=== PATIENT | male | born 1930 | race Caucasian/White ===

== ENCOUNTER 2017-07-21 14:59 | Inpatient (IN) ==
[2017-07-21] MEDS ORDERED: Acetaminophen 325 MG TABLET PO PRN (19:54)
[2017-07-21] MEDS ORDERED: Naloxone 0.4 MG/ML INJ IVP PRN (19:54)
[2017-07-21] MEDS ORDERED: Dextrose Gel 15 GM/37.5 ML TUBE PO PRN ×2 (20:03)
[2017-07-21] MEDS ORDERED: D5% in Water 1,000 ML IVC PRN (20:03)
[2017-07-21] MEDS ORDERED: *HR* Dextrose 50 % in Water (Syg) 50 ML SYRINGE IVP PRN (20:03)
--- NOTE | 2017-07-21 20:11 | Internal Med History&Physical ---
Date of Encounter: 07/21/17 Time of Encounter: 19:15 Assessment and Plan (1) Acute kidney failure Current visit: Yes Status: Acute 1. Will hydrate with IVF for post-obstructive diuresis. 2. Will ultrasound kidneys in the morning. 3. Consult Dr. Elder and Dr. Kan -- both notified. 4. Monitor renal function and I/O. Qualifiers: Acute renal failure type: unspecified Qualified Code(s): N17.9 - Acute kidney failure, unspecified (2) Hematuria Current visit: Yes Status: Acute 1. Likely due to post-obstructive diuresis. 2. Will order U/A C&S. 3. Monitor renal function and H/H closely. 4. Will treat with Rocephin for possible UTI. 5. Nephrology and Urology consulted. Qualifiers: Hematuria type: unspecified type Qualified Code(s): R31.9 - Hematuria, unspecified (3) Type 2 diabetes mellitus Current visit: Yes Status: Chronic 1. Hold oral meds. 2. Will use SSI and adjust dosing per glucose levels. Qualifiers: Diabetes mellitus complication status: without complication Diabetes mellitus technician terminal and repeater insulin use: without halfway use Qualified Code(s): E11.9 - Type 2 diabetes mellitus without complications (4) Anemia Current visit: Yes Status: Acute 1. Unsure how acute the anemia has been. 2. Will monitor H/H and transfuse as needed. 3. No history of reported blood loss other than hematuria this weekend. Qualifiers: Anemia type: unspecified type Qualified Code(s): D64.9 - Anemia, unspecified (5) DVT prophylaxis Current visit: Yes Status: Acute 1. EPCD's. Internal Medicine - H&P: HPI Chief complaint: hematuria; transfer from [facility] Admitted From: Hospital to Hospital Transfer Plans for Post Hospital Care: Home History of present illness: Mr. Dumont is a 86 year old male presents in transfer from [facility] for hematuria. He presented there this past weekend with inablity to void. He had a Mujica placed and was admitted to the hospital. He had 2000 cc urine output after Mujica placement. He had developed hematuria after his Mujica placement and hematuria has perisisted. He was therefore transferred because of lack of urology and nephrology coverage at [facility]. Upon my assessment, patient feel OK but weak. He developed incontinenece about two months ago and then inability to void this past Thursday. Prior to that, he has had no urination or kidney problems. He denies any dysuria, flank pain, nausea, vomiting, or difficulty moving bowels prior to his admission. He denies any prior prostate problems. Past Med Surg Social Fam HX - Past Medical History Attestation: Yes The following information was validated with the patient. Source: patient, old records reviewed, obtained from family, other (transfer records from [facility]) Medical history: diabetes, hyperlipidemia, hypertension Psychiatric history: no psych history - Past Surgical History Surgical History: appendectomy, cholecystectomy, knee replacement - Social History Smoking Status: Former smoker Alcohol use: none Drug use: none Occupational status: retired Current living situation: Home - Independent Activity Level: Independent ambulation, Very active Recent Out of Country Travel Within the Last 8 Weeks: No - Family History Mother Living Status: Father Living Status: Internal Medicine - H&P: Meds 3 Allergy/AdvReac Type Severity Reaction Status Date / Time codeine Allergy Hives Verified 07/21/17 18:42 morphine Allergy Rash Verified 07/21/17 18:42 - Constitutional Constitutional: no chills, no fever(s), no night sweats, no weight loss - EENT Eyes: no blurry vision, no change in vision Ears: no ear pain, no tinnitus Nose, mouth and throat: no nasal congestion, no nasal discharge - Cardiovascular Cardiovascular ROS IM: no chest pain, no dyspnea, no dyspnea on exertion, no orthopnea, no syncope - Respiratory Respiratory: no cough, no dyspnea, no hemoptysis, no dyspnea on exertion, no chest congestion, no excessive phlegm production, no change in phlegm color - Gastrointestinal Gastrointestinal: no abdominal pain, no diarrhea, no hematemesis, no hematochezia, no melena, no nausea, no vomiting - Genitourinary Genitourinary ROS male: hematuria, urinary hesitancy, urinary incontinence, no dysuria, no flank pain, no nocturia - Musculoskeletal Musculoskeletal ROS IM: no arthralgias, no atrophy - Integumentary Integumentary IM: no rash, no jaundice - Neurological Neurological ROS: no dizziness, no focal weakness, no frequent falls, no tingling, no vertigo, no weakness - Psychiatric Psychiatric: no anxiety, no depression - Endocrine Endocrine IM: no polydipsia, no polyuria - Hematologic/Lymphatic Hematologic/Lymphatic: no easy bruising, no lymphadenopathy - Allergic/Immunologic Allergic/Immunologic: no wheezing, no GI upset with certain foods - Constitutional Vitals: Temp Pulse Resp BP Pulse Ox 98.1 F 71 16 147/56 96 07/21/17 18:18 07/21/17 18:18 07/21/17 18:18 07/21/17 18:18 07/21/17 18:18 General appearance: Present: cooperative, A&O X 3, pleasant, no acute distress, answers questions appropriately - Head Head exam: Present: normal inspection - Eye Eye exam: Present: EOMI, normal appearance, PERRL. Absent: scleral icterus Pupils: Present: normal accommodation - ENT ENT exam: Present: mucous membranes dry, normal exam, normal oropharynx - Neck Neck exam general surgery: Present: full ROM, supple. Absent: tenderness, nuchal rigidity - Expanded Neck Exam Neck exam: Absent: carotid bruit - Respiratory Respiratory exam: Present: CTAB. Absent: chest wall tenderness, rales, rhonchi , wheezes - Cardiovascular Cardiovascular exam: Present: RRR, +S1, +S2. Absent: diastolic murmur, systolic murmur - GI/Abdominal GI/Abdominal exam: Present: normal bowel sounds, soft. Absent: guarding, hepatomegaly, mass, rebound, splenomegaly, tenderness - Extremities Exam Extremities exam: Present: normal capillary refill, warm, radial pulses palpable and symmetrical. Absent: calf tenderness, joint swelling, tenderness - Back Exam Back exam: Present: normal inspection. Absent: CVA tenderness (L), CVA tenderness (R) - Neurological Exam Neurological exam: Present: alert, CN II-XII intact, oriented X3, no focal deficits, strengths equal and symetr throughout - Psychiatric Psychiatric exam: Present: normal affect, normal mood - Skin Skin exam: Present: dry, warm. Absent: rash Internal Med - H&P Results - Labs Labs: I reviewed labs from [facility] and they include the following: WBC 6.4 Hgb 7.5 Hct 22.5 Platelet 195 Na 145 Potassium 3.8 Chloride 113 CO2 24 BUN 28 Glucose 56 Creatinine 1.98 Renal Ultrasound: Cysts in the kidneys Mild bilateral hydronephrosis
[2017-07-21 20:43] LABS: Basophils % 0.4 %; Eosinophils # 0.3 K/mcL (0.0-0.6); Eosinophils % 3.6 %; Hematocrit 27.2 % (37.5-50.1); Hemoglobin 8.9 g/dL (12.9-16.9); Immature Granulocytes % 0.9 % (0-4); Lymphocytes # 1.9 K/mcL (0.6-4.6); Lymphocytes % 24.1 %; Mean Corpuscular HGB Conc 32.7 g/dL (31.6-35.5); Mean Corpuscular Hemoglobin 31.4 pg (28.0-33.3); Mean Corpuscular Volume 96.1 fL (83.0-100.0); Mean Platelet Volume 10.9 fL (9.4-12.4); Monocytes # 0.8 K/mcL (0.0-1.3); Monocytes % 10.4 %; Neutrophils # 4.7 K/mcL (1.6-8.9); Platelet Count 222 K/mcL (140-400); Red Blood Count 2.83 M/mcL (4.19-5.50); Red Cell Distribution Width 12.1 % (11.5-14.5); Segmented Neutrophils % 60.6 %
[2017-07-21 20:49] LABS: INR 1.1; Prothrombin Time 11.8 Seconds (9.4-12.1)
[2017-07-21 20:51] LABS: Activated Partial Thrombo Time 26.2 Seconds (26.0-36.0)
[2017-07-21 21:16] LABS: Albumin 3.1 g/dL (3.5-5.7); Bilirubin,Total 0.3 mg/dL (0.3-1.0); Calcium 8.3 mg/dL (8.6-10.3); Magnesium 1.2 mg/dL (1.6-2.6); Potassium 3.6 mEq/L (3.5-5.1); Total Protein 6.1 g/dL (6.4-8.9)
[2017-07-21] MEDS: 0.9 % Sodium Chloride 1,000 ML IVC SCH (21:39)
[2017-07-21] MEDS: cefTRIAXone 1,000 MG in Water for inj. (sterile) 20 ML 10 ML IVP SCH (21:39)
[2017-07-22 01:39] LABS: Bilirubin,Urine Negative (Negative); Blood,Urine Large (Negative); Clarity,Urine Cloudy (Clear); Color,Urine Other (Yellow); Glucose,Urine (UA) 100 mg/dL (Normal); Ketones,Urine Negative (Negative); Leukocyte Esterase,Urine Trace (Negative); Nitrite,Urine Negative (Negative); Protein,Urine 100 mg/dL (Neg-Trace); Specific Gravity,Urine 1.014 (1.010-1.025); Urobilinogen,Urine Normal (Normal)
[2017-07-22 01:41] LABS: Bacteria,Urine None Seen per hpf (None-Few); Hyaline Casts,Urine None Seen per lpf (None-Few); RBC,Urine TNTC per hpf (0-3); Squamous Epithelial Cell,Urine Many per lpf (None-Few)
[2017-07-22 05:53] LABS: Basophils % 0.4 %; Eosinophils # 0.3 K/mcL (0.0-0.6); Eosinophils % 3.6 %; Hemoglobin 8.6 g/dL (12.9-16.9); Lymphocytes # 1.7 K/mcL (0.6-4.6); Mean Corpuscular HGB Conc 33.1 g/dL (31.6-35.5); Mean Corpuscular Hemoglobin 31.6 pg (28.0-33.3); Mean Corpuscular Volume 95.6 fL (83.0-100.0); Mean Platelet Volume 10.6 fL (9.4-12.4); Monocytes # 0.8 K/mcL (0.0-1.3); Monocytes % 11.8 %; Neutrophils # 4.1 K/mcL (1.6-8.9); Nucleated Red Blood Cells 0.4 /100 WBC (0); Platelet Count 222 K/mcL (140-400); Red Blood Count 2.72 M/mcL (4.19-5.50); Red Cell Distribution Width 12.1 % (11.5-14.5); Segmented Neutrophils % 59.2 %
[2017-07-22 06:16] LABS: Albumin/Globulin Ratio 1.1 (1.1-2.2); Bilirubin,Total 0.3 mg/dL (0.3-1.0); Globulin 2.8 g/dL (2.4-3.5); Potassium 3.5 mEq/L (3.5-5.1); Total Protein 5.8 g/dL (6.4-8.9)
--- NOTE | 2017-07-22 07:51 | Nephrology Consult Note ---
Date of Encounter: 07/22/17 Time of Encounter: 07:49 Assessment and Plan (1) Acute kidney failure Current Visit: Yes Status: Acute The patient has a component of acute kidney injury. This seemed to improve with IV hydration raising the possibility of some postobstructive diuresis and possible volume depletion. His renal ultrasound is unremarkable except for changes in the bladder. It is unclear what his baseline renal function is. He certainly could have some underlying chronic kidney disease. We will continue to monitor his renal function. I would continue the IV fluids for at least another 24 hours. Urology has been consulted. We will attempt to get some outpatient lab studies to determine the patient's baseline renal function. Qualifiers: Acute renal failure type: unspecified Qualified Code(s): N17.9 - Acute kidney failure, unspecified (2) Bladder outlet obstruction Current Visit: Yes Status: Acute (3) Hematuria Current Visit: Yes Status: Acute Qualifiers: Hematuria type: gross Qualified Code(s): R31.0 - Gross hematuria History of Present Illness - History of Present Illness This is an [age]-year-old male who was admitted because of hematuria. Patient is somewhat of a unreliable historian. A lot of the history is taken from the medical record. Apparently the patient had difficulty emptying his bladder. He says this may have been several weeks ago. He presented to [facility] and eventually had a Mujica catheter placed. He said they had quite a bit of difficulty placing a Mujica catheter in he had a lot of pain during insertion. The patient's serum creatinine was 1.78 on admission. He received IV fluids overnight his creatinine is down to 1.53. Baseline creatinine is uncertain. Renal ultrasound was unremarkable and did not show any hydronephrosis. Mujica catheter is in place. There is gross hematuria in the bag. Currently the patient has no specific complaints. He says he did not realize he was having difficulty emptying his bladder until he was told to emptying on. Apparently that is when the Mujica catheter was placed at [facility]. He says he does not go to the doctor much and that the best of his knowledge does not have a primary care physician. Past Med Surg Social Fam HX - Past Medical History Medical history: diabetes, hyperlipidemia, hypertension Psychiatric history: no psych history - Past Surgical History Surgical History: appendectomy, cholecystectomy, knee replacement - Social History Smoking Status: Former smoker Alcohol use: none Drug use: none - Family History Mother Living Status: Father Living Status: Medications and Allergies Acebutolol HCl 400 mg PO DAILY 07/22/17 [History] Aspirin [Lo-Dose Aspirin EC] 81 mg PO DAILY 07/22/17 [History] Atorvastatin [Lipitor] 10 mg PO HS 07/22/17 [History] Glimepiride [Amaryl] 4 mg PO DAILY 07/22/17 [History] Insulin NPH Human Isophane [Humulin N Kwikpen] 15 unit SQ QPM 07/22/17 [History] Insulin NPH Human Isophane [Humulin N Kwikpen] 30 unit SQ QAM 07/22/17 [History] amLODIPine [Norvasc] 5 mg PO DAILY 07/22/17 [History] 3 Allergy/AdvReac Type Severity Reaction Status Date / Time codeine Allergy Hives Verified 07/21/17 18:42 morphine Allergy Rash Verified 07/21/17 18:42 Review of Systems Constitutional: as per HPI Eyes: bilateral: blurred vision (patient denies), diplopia (patient denies) Nose, mouth and throat: no dizziness, no headache(s) Cardiovascular: no chest pain, no palpitations Respiratory: no cough, no dyspnea Gastrointestinal: no abdominal pain, no change in bowel habits Genitourinary Male: as per HPI, difficulty urinating, hematuria Musculoskeletal: no muscle weakness, no numbness Integumentary: no hirsutism, no striae Neurological: as per HPI Psychiatric: no depression, no difficulty concentrating Endocrine: as per HPI Hematologic/Lymphatic: no easy bruising, no lymphadenopathy Exam - Vital Signs Vital signs: Initial Vital Signs Temp Pulse Resp BP Pulse Ox 98.1 F 71 16 147/56 96 07/21/17 18:18 07/21/17 18:18 07/21/17 18:18 07/21/17 18:18 07/21/17 18:18 Vital Signs - Last 8 Hours Temp Pulse Resp BP Pulse Ox 07/22/17 06:45 98.2 F 60 18 140/57 95 07/22/17 04:34 97.7 F 66 20 162/57 97 07/22/17 00:30 98.2 F 67 18 144/60 96 Intake and Output 03/06/18 03/06/18 03/07/18 15:59 23:59 07:59 Output Total 1500 / 1500 1100 / 1100 Balance -1500 / -1500 -1100 / -1100 Output: Urine 1500 / 1500 Catheter 1100 / 1100 Other: Weight 77.7 kg 79 kg Blood Glucose* 260 178 Patient Weight 07/22/17 23:59 Weight 79 kg - General Appearance Exam: The patient is alert. He denies any complaints. He is in no acute distress. He is afebrile and blood pressure is 140/57. Lungs diminished breath sounds otherwise clear to auscultation. Heart regular rate and rhythm. Abdomen shows normal bowel sounds of bruits masses again megaly or tenderness. There is no lower extremity swelling. A Mujica catheter is in place draining grossly bloody urine. Results - Lab Results 07/22/17 05:36 07/22/17 05:36 Most recent lab results Calcium 8.0 mg/dL (8.6-10.3) L 07/22/17 05:36 Magnesium 1.2 mg/dL (1.6-2.6) L 07/21/17 20:21 Consult Discharge Plan - Plan Referrals: Vinnie Carrera [Other]
--- NOTE | 2017-07-22 08:10 | Urology - Consult Note ---
Date of Encounter: 07/22/17 Time of Encounter: 08:07 - Assessment and Plan (1) Bladder outlet obstruction Current Visit: Yes Status: Acute Assessment and plan: 86-year-old gentleman with a history of urinary retention. Currently, he has a 12-Irish Mujica catheter in place. He does have some mild hematuria. His follow-up ultrasound shows no evidence of hydronephrosis. Renal function is improving. I recommend continue this catheter or changing it for a larger bore catheter such as a 16 or 18-Irish Mujica catheter if it does not drain well. We can attempt a voiding trial in the urology office in 1-2 weeks. Please consider alpha blockade such as tamsulosin to improve his bladder outlet obstruction in the short-term. (2) Hematuria Current Visit: Yes Status: Acute Assessment and plan: His urine is mildly bloody. In the tubing, it has a light pink tinge. Typically, this will resolve on its own. Continue to hold anticoagulants at this time. We may need to change out his catheter for a larger bore Mujica to irrigate the catheter if necessary. Operative intervention is unlikely at this time given the color of the urine. Continue to monitor his H&H. Transfuse if he becomes symptomatic. Qualifiers: Hematuria type: gross Qualified Code(s): R31.0 - Gross hematuria Urology CN:HPI Consult date: 07/22/17 Reason for consult Urology: Other (Urinary retention) Requesting physician: Ashu Tomlinson History of present illness: 86 year old man presents with urinary retention and hematuria. He was having difficulty voiding and noted incontinence at home. He went to the [facility] emergency Department and a Mujica catheter was placed. He then developed hematuria after his bladder was decompressed. There was no urologic or nephrology support at [facility] and he was transferred to our hospital for further care. Prior to going into retention, he denied any issues with voiding. He denies any lightheadedness or dizziness today. Past Med Surg Social Fam HX - Past Medical History Medical history: diabetes, hyperlipidemia, hypertension Psychiatric history: no psych history - Past Surgical History Surgical History: appendectomy, cholecystectomy, knee replacement - Social History Smoking Status: Former smoker Alcohol use: none Drug use: none - Family History Mother Living Status: Father Living Status: Medications and Allergies Acebutolol HCl 400 mg PO DAILY 07/22/17 [History] Aspirin [Lo-Dose Aspirin EC] 81 mg PO DAILY 07/22/17 [History] Atorvastatin [Lipitor] 10 mg PO HS 07/22/17 [History] Glimepiride [Amaryl] 4 mg PO DAILY 07/22/17 [History] Insulin NPH Human Isophane [Humulin N Kwikpen] 15 unit SQ QPM 07/22/17 [History] Insulin NPH Human Isophane [Humulin N Kwikpen] 30 unit SQ QAM 07/22/17 [History] amLODIPine [Norvasc] 5 mg PO DAILY 07/22/17 [History] 3 Allergy/AdvReac Type Severity Reaction Status Date / Time codeine Allergy Hives Verified 07/21/17 18:42 morphine Allergy Rash Verified 07/21/17 18:42 Review of Systems - Constitutional no chills, no fever(s) - EENT Nose, mouth and throat: no dizziness - Cardiovascular no chest pain - Respiratory no dyspnea - Gastrointestinal no nausea, no vomiting - Genitourinary hematuria, no flank pain - Musculoskeletal no back pain - Integumentary no erythema, no rash - Neurological no weakness - Psychiatric no suicidal ideation - Hematologic/Lymphatic no easy bleeding - Allergic/Immunologic no wheezing Exam Initial Vital Signs Temp Pulse Resp BP Pulse Ox 98.1 F 71 16 147/56 96 07/21/17 18:18 07/21/17 18:18 07/21/17 18:18 07/21/17 18:18 07/21/17 18:18 - General physical appearance Present: well developed, well nourished, no distress - Eyes Absent: icteric - ENT Present: normal nares - Neck Present: trachea midline - Respiratory Present: normal respiratory effort - Cardiovascular Cardiovascular exam IM: RRR - Abdomen Abdomen: Present: soft, non tender - Genitourinary other (12 Irish [address] catheter in place with light pink colored urine) - Integumentary Present: no rash - Neurologic Present: normal coordination - Musculoskeletal Present: other (No edema.) Urology Results - Labs 07/22/17 05:36 07/22/17 05:36 Abnormal lab results RBC 2.72 M/mcL (4.19-5.50) L 07/22/17 05:36 Hgb 8.6 g/dL (12.9-16.9) L 07/22/17 05:36 Hct 26.0 % (37.5-50.1) L 07/22/17 05:36 Nucleated RBCs/100 WBC 0.4 /100 WBC (0) H 07/22/17 05:36 BUN 32 mg/dL (8-23) H 07/22/17 05:36 Creatinine 1.53 mg/dL (0.70-1.30) H 07/22/17 05:36 Est GFR ( Amer) 52 (> 60) L 07/22/17 05:36 Est GFR (Non-Af Amer) 43 (> 60) L 07/22/17 05:36 Glucose 195 mg/dL (70-105) H 07/22/17 05:36 POC Glucose 260 (58-89) H 07/21/17 20:20 Calcium 8.0 mg/dL (8.6-10.3) L 07/22/17 05:36 Magnesium 1.2 mg/dL (1.6-2.6) L 07/21/17 20:21 Serum Total Protein 5.8 g/dL (6.4-8.9) L 07/22/17 05:36 Albumin 3.0 g/dL (3.5-5.7) L 07/22/17 05:36 Urine Color Other (Yellow) A 07/22/17 01:20 Urine Clarity Cloudy (Clear) A 07/22/17 01:20 Urine Protein 100 mg/dL (Neg-Trace) H 07/22/17 01:20 Urine Glucose (UA) 100 mg/dL (Normal) H 07/22/17 01:20 Urine Blood Large (Negative) H 07/22/17 01:20 Ur Leukocyte Esterase Trace (Negative) H 07/22/17 01:20 Urine Microscopic RBC TNTC per hpf (0-3) H 07/22/17 01:20 Urine Microscopic WBC 5-15 per hpf (0-3) H 07/22/17 01:20 Ur Squamous Epith Cells Many per lpf (None-Few) H 07/22/17 01:20 Diabetes panel 07/21/17 07/22/17 Range/Units 20:21 05:36 Sodium 135 L 137 (136-145) mEq/L Potassium 3.6 3.5 (3.5-5.1) mEq/L Chloride 108 H 107 (98-107) mEq/L Carbon Dioxide 21 L 23 (23-29) mEq/L BUN 36 H 32 H (8-23) mg/dL Creatinine 1.78 H 1.53 H (0.70-1.30) mg/dL Glucose 236 H 195 H (70-105) mg/dL Calcium 8.3 L 8.0 L (8.6-10.3) mg/dL AST 14 13 (13-39) Units/L ALT 9 9 (7-52) Units/L Alkaline Phosphatase 60 59 (34-104) Units/L Albumin 3.1 L 3.0 L (3.5-5.7) g/dL Calcium panel 07/21/17 07/22/17 Range/Units 20:21 05:36 Calcium 8.3 L 8.0 L (8.6-10.3) mg/dL Albumin 3.1 L 3.0 L (3.5-5.7) g/dL Pituitary panel 07/21/17 07/22/17 Range/Units 20:21 05:36 Sodium 135 L 137 (136-145) mEq/L Potassium 3.6 3.5 (3.5-5.1) mEq/L Chloride 108 H 107 (98-107) mEq/L Carbon Dioxide 21 L 23 (23-29) mEq/L BUN 36 H 32 H (8-23) mg/dL Creatinine 1.78 H 1.53 H (0.70-1.30) mg/dL Glucose 236 H 195 H (70-105) mg/dL Calcium 8.3 L 8.0 L (8.6-10.3) mg/dL Adrenal panel 07/21/17 07/22/17 Range/Units 20:21 05:36 Sodium 135 L 137 (136-145) mEq/L Potassium 3.6 3.5 (3.5-5.1) mEq/L Chloride 108 H 107 (98-107) mEq/L Carbon Dioxide 21 L 23 (23-29) mEq/L BUN 36 H 32 H (8-23) mg/dL Creatinine 1.78 H 1.53 H (0.70-1.30) mg/dL Glucose 236 H 195 H (70-105) mg/dL Calcium 8.3 L 8.0 L (8.6-10.3) mg/dL Total Bilirubin 0.3 0.3 (0.3-1.0) mg/dL AST 14 13 (13-39) Units/L ALT 9 9 (7-52) Units/L Alkaline Phosphatase 60 59 (34-104) Units/L Albumin 3.1 L 3.0 L (3.5-5.7) g/dL All other labs normal. - Imaging US - abdomen: report reviewed, image reviewed US - pelvic: report reviewed, image reviewed Consult Discharge Plan - Plan Referrals: Vinnie Carrera [Other]
[2017-07-22] MEDS: cefTRIAXone 1,000 MG in Water for inj. (sterile) 20 ML 10 ML IVP SCH (09:08)
[2017-07-22] MEDS: Insulin LISPRO 300 UNITS/3 ML VIAL SQ SCH ×4 (09:09→21:20)
[2017-07-22] MEDS: 0.9 % Sodium Chloride 1,000 ML IVC SCH (09:16)
[2017-07-22 10:23] LABS: Hemoglobin A1C 7.9 %
--- NOTE | 2017-07-22 18:32 | Event Note ---
Date of Encounter: 07/22/17 Time of Encounter: 18:30 Under sterile conditions, I changed out his Mujica catheter. I placed a new 22- Belarusian 3-way catheter. I irrigated the catheter and a small amount of clot returned. He tolerated the procedure well. The catheter was left to drainage. I did not start CBI as it might disrupt his output recording.
--- NOTE | 2017-07-22 22:44 | Internal Med Progress Note ---
Date of Encounter: 07/22/17 Time of Encounter: 09:30 - Assessment and plan (1) Hematuria Current Visit: Yes Status: Acute Assessment and plan: Urology consult appreciated, recommended continuing Mujica catheter, plan to change it for a larger port catheter. Started on Flomax. Hemoglobin stable, around 8.6. Renal ultrasound shows no hydronephrosis. Continue IV hydration, monitor hemoglobin closely. Hold aspirin. Qualifiers: Hematuria type: gross Qualified Code(s): R31.0 - Gross hematuria (2) UTI (urinary tract infection) Current Visit: Yes Status: Suspected Assessment and plan: Suspected. Continue IV Rocephin, follow up final urine culture. Qualifiers: Urinary tract infection type: acute cystitis Hematuria presence: with hematuria Qualified Code(s): N30.01 - Acute cystitis with hematuria (3) Essential hypertension Current Visit: Yes Status: Chronic (4) Hyperlipidemia Current Visit: Yes Status: Chronic Qualifiers: Hyperlipidemia type: unspecified Qualified Code(s): E78.5 - Hyperlipidemia , unspecified (5) Chronic kidney disease Current Visit: Yes Status: Chronic Assessment and plan: Review of previous records show possible chronic kidney disease with serum creatinine between 1.2 and 1.4. Nephrology on board. Qualifiers: Chronic kidney disease stage: stage 3 (moderate) Qualified Code(s): N18.3 - Chronic kidney disease, stage 3 (moderate) (6) Acute kidney failure Current Visit: Yes Status: Acute Assessment and plan: Improving. Serum creatinine down to 1.53 today. Avoid nephrotoxic agents. Qualifiers: Acute renal failure type: unspecified Qualified Code(s): N17.9 - Acute kidney failure, unspecified (7) Anemia Current Visit: Yes Status: Chronic Assessment and plan: Noted to have chronic anemia. Labs from 2015 show hemoglobin around 8, currently it 8.6. Check serum iron profile, vitamin B12 and folic acid levels. 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 Qualifiers: Anemia type: unspecified type Qualified Code(s): D64.9 - Anemia, unspecified (8) Type 2 diabetes mellitus Current Visit: Yes Status: Chronic Assessment and plan: Continue Accu-Chek blood glucose monitoring with sliding scale insulin as needed. Diabetic diet. Qualifiers: Diabetes mellitus complication status: with kidney complications Diabetes mellitus complication detail: with chronic kidney disease Diabetes mellitus retirement insulin use: without retirement use Chronic kidney disease stage: stage 3 (moderate) Qualified Code(s): E11.22 - Type 2 diabetes mellitus with diabetic chronic kidney disease; N18.3 - Chronic kidney disease, stage 3 ( moderate); N18.3 - Chronic kidney disease, stage 3 (moderate) - Subjective Interval history: Reports feeling better; improving hematuria; no fever, abdominal pain, nausea, vomiting; - Constitutional Vitals: Temp Pulse Resp BP Pulse Ox 98.6 F 67 18 149/57 97 07/22/17 19:52 07/22/17 19:52 07/22/17 19:52 07/22/17 19:52 07/22/17 19:52 General appearance: Present: cooperative, A&O X 3, pleasant, no acute distress, answers questions appropriately - Respiratory Respiratory exam: Present: CTAB. Absent: accessory muscle use, rales, rhonchi, wheezes - Cardiovascular Cardiovascular exam: Present: RRR, +S1, +S2. Absent: diastolic murmur, gallop, rubs, systolic murmur - GI/Abdominal GI/Abdominal exam: Present: normal bowel sounds, soft (Mujica in place, draining blood-tinged urine), no peritoneal signs. Absent: distended, tenderness - Extremities Exam Extremities exam: Present: full ROM, warm, radial pulses palpable and symmetrical. Absent: calf tenderness, cyanotic, pedal edema - Neurological Exam Neurological exam: Present: CN II-XII intact, oriented X3, no focal deficits. Absent: pronater drift, facial droop, speech deficit Internal Medicine: Result - Labs CBC & Chem 7: 07/23/17 04:33 07/23/17 04:33 Labs: Short CBC 07/22/17 Range/Units 05:36 WBC 6.9 (4.3-11.1) K/mcL Hgb 8.6 L (12.9-16.9) g/dL Hct 26.0 L (37.5-50.1) % Plt Count 222 (140-400) K/mcL Neutrophils # 4.1 (1.6-8.9) K/mcL BMP 07/22/17 05:36 Sodium 137 Potassium 3.5 Chloride 107 Carbon Dioxide 23 BUN 32 H Creatinine 1.53 H Glucose 195 H Calcium 8.0 L Liver Function 07/22/17 Range/Units 05:36 Total Bilirubin 0.3 (0.3-1.0) mg/dL AST 13 (13-39) Units/L ALT 9 (7-52) Units/L Alkaline Phosphatase 59 (34-104) Units/L Albumin 3.0 L (3.5-5.7) g/dL Urine 07/22/17 Range/Units 01:20 Urine Color Other A (Yellow) Urine Clarity Cloudy A (Clear) Urine pH 6.0 (5.0-8.0) pH Units Ur Specific [place] 1.014 (1.010-1.025) Urine Protein 100 H (Neg-Trace) mg/dL Urine Glucose (UA) 100 H (Normal) mg/dL - ABG Interpretation ABG results: PT/INR, D-dimer PT 11.8 Seconds (9.4-12.1) 07/21/17 20:21 - Impressions Impressions Retroperitoneum Ultrasound 07/21/17 22:00 IMPRESSION: No hydronephrosis. Bladder wall thickening could indicate cystitis or outlet obstruction. D/ / Crow Alvarze MD / Crow Alvarez MD Interpreting Provider: Crow Alvarez MD Consult Discharge Plan - Plan Referrals: Vinnie Carrera [Other]
[2017-07-23] MEDS ORDERED: Haloperidol Lactate 5 MG/ML VIAL IM ONE (04:06)
[2017-07-23] MEDS ORDERED: Haloperidol Lactate 5 MG/ML VIAL ONE (04:09)
[2017-07-23 04:50] LABS: Basophils # 0.1 K/mcL (0.0-0.2); Basophils % 0.7 %; Eosinophils # 0.2 K/mcL (0.0-0.6); Hematocrit 28.5 % (37.5-50.1); Hemoglobin 9.4 g/dL (12.9-16.9); Immature Granulocytes % 0.9 % (0-4); Lymphocytes # 1.9 K/mcL (0.6-4.6); Lymphocytes % 19.6 %; Mean Corpuscular Hemoglobin 31.3 pg (28.0-33.3); Mean Platelet Volume 10.8 fL (9.4-12.4); Monocytes % 10.5 %; Neutrophils # 6.3 K/mcL (1.6-8.9); Nucleated Red Blood Cells 0.2 /100 WBC (0); Platelet Count 242 K/mcL (140-400); Red Cell Distribution Width 12.3 % (11.5-14.5); Segmented Neutrophils % 66.3 %
[2017-07-23 05:08] LABS: % Iron Saturation 11 % (20-55); Ferritin 349 ng/ml (20-250); Iron 30 mcg/dL (65-175); Transferrin 194 mg/dL (203-362)
[2017-07-23 05:09] LABS: Albumin 3.3 g/dL (3.5-5.7); Bilirubin,Total 0.4 mg/dL (0.3-1.0); Calcium 8.6 mg/dL (8.6-10.3); Globulin 3.2 g/dL (2.4-3.5); Potassium 3.6 mEq/L (3.5-5.1); Total Protein 6.5 g/dL (6.4-8.9)
[2017-07-23 05:34] LABS: Folate 16.8 ng/mL (3.0-16.0)
--- NOTE | 2017-07-23 07:17 | Urology Progress Note ---
Date of Encounter: 07/23/17 Time of Encounter: 07:15 - Assessment and Plan (1) Bladder outlet obstruction Current Visit: Yes Status: Acute Assessment and plan: Continue Mujica catheter for now. His post obstructive diuresis seems to be improving. He has not formed a lot of blood clots within his bladder. It is reasonable to continue with just dependent drainage of the Mujica catheter. For now I will hold off on initiating CBI. (2) Hematuria Current Visit: Yes Status: Acute Assessment and plan: We will monitor for now. Hemoglobin and hematocrit are stable. Qualifiers: Hematuria type: gross Qualified Code(s): R31.0 - Gross hematuria Progress Note Narrative: Patient is doing well this morning. Urine is still light pink. No CBI has been started. Objective Initial Vital Signs Temp Pulse Resp BP Pulse Ox 98.1 F 71 16 147/56 96 07/21/17 18:18 07/21/17 18:18 07/21/17 18:18 07/21/17 18:18 07/21/17 18:18 - General physical appearance Present: well developed, well nourished, no distress - Respiratory Present: normal respiratory effort - Abdomen Present: soft - Genitourinary Urine Appearance: Present: Hematuria (Light pink-colored urine.) - Labs 07/23/17 04:33 07/23/17 04:33 Diabetes panel 07/21/17 07/23/17 Range/Units 20:21 04:33 Sodium 135 L (136-145) mEq/L Potassium 3.6 (3.5-5.1) mEq/L Chloride 106 (98-107) mEq/L Carbon Dioxide 21 L (23-29) mEq/L BUN 31 H (8-23) mg/dL Creatinine 1.41 H (0.70-1.30) mg/dL Glucose 276 H (70-105) mg/dL Hemoglobin A1c 7.9 H ( - 5.6) % Calcium 8.6 (8.6-10.3) mg/dL AST 13 (13-39) Units/L ALT 10 (7-52) Units/L Alkaline Phosphatase 71 (34-104) Units/L Albumin 3.3 L (3.5-5.7) g/dL Calcium panel 07/23/17 Range/Units 04:33 Calcium 8.6 (8.6-10.3) mg/dL Albumin 3.3 L (3.5-5.7) g/dL Pituitary panel 07/23/17 Range/Units 04:33 Sodium 135 L (136-145) mEq/L Potassium 3.6 (3.5-5.1) mEq/L Chloride 106 (98-107) mEq/L Carbon Dioxide 21 L (23-29) mEq/L BUN 31 H (8-23) mg/dL Creatinine 1.41 H (0.70-1.30) mg/dL Glucose 276 H (70-105) mg/dL Calcium 8.6 (8.6-10.3) mg/dL Adrenal panel 07/23/17 Range/Units 04:33 Sodium 135 L (136-145) mEq/L Potassium 3.6 (3.5-5.1) mEq/L Chloride 106 (98-107) mEq/L Carbon Dioxide 21 L (23-29) mEq/L BUN 31 H (8-23) mg/dL Creatinine 1.41 H (0.70-1.30) mg/dL Glucose 276 H (70-105) mg/dL Calcium 8.6 (8.6-10.3) mg/dL Total Bilirubin 0.4 (0.3-1.0) mg/dL AST 13 (13-39) Units/L ALT 10 (7-52) Units/L Alkaline Phosphatase 71 (34-104) Units/L Albumin 3.3 L (3.5-5.7) g/dL Consult Discharge Plan - Plan Referrals: Vinnie Carrera [Other]
[2017-07-23] MEDS: cefTRIAXone 1,000 MG in Water for inj. (sterile) 20 ML 10 ML IVP SCH (08:08)
[2017-07-23] MEDS: Insulin LISPRO 300 UNITS/3 ML VIAL SQ SCH ×4 (08:09→21:17)
--- NOTE | 2017-07-23 11:13 | Nephrology Progress Note ---
Date of Encounter: 07/23/17 Time of Encounter: 10:50 - Assessment and Plan (1) Acute kidney failure Current Visit: Yes Status: Acute DANIEL most likely postobstructive diuresis and possible volume depletion superimposed on CKD most likely related to diabetes and hypertension, advanced age contributing. Baseline creat (in 2014) 1.3-1.7. Today creat 1.41. Accurate I &O. Avoid nephrotoxins. Will continue to monitor. Qualifiers: Acute renal failure type: unspecified Qualified Code(s): N17.9 - Acute kidney failure, unspecified Subjective Interval history: Laying in bed, caregiver at bedside. States feeling somewhat better. Mujica to BSD-light garcia color without clots. Objective - Vital Signs Vital signs: Vital Signs Temp Pulse Resp BP Pulse Ox 07/23/17 07:37 97.8 F 83 18 178/68 96 07/23/17 04:21 110/61 07/23/17 04:19 102/55 07/23/17 03:45 97.5 F L 109 20 134/61 95 07/23/17 00:27 98.0 F 78 18 171/70 97 07/22/17 19:52 98.6 F 67 18 149/57 97 07/22/17 14:59 98.2 F 64 16 146/68 96 Intake and Output 07/22/17 07/23/17 07/23/17 23:59 07:59 15:59 Intake Total 240 / 240 75 / 75 Output Total 1800 / 1800 375 / 375 Balance 240 / 240 -1800 / -1800 -300 / -300 Intake: Oral 240 / 240 75 / 75 Output: Urine 350 / 350 375 / 375 Catheter 1450 / 1450 Other: Meal Dinner Breakfast Percent of Meal Consumed 100% 95% Weight 76.9 kg Blood Glucose* 265 239 Patient Weight 07/23/17 23:59 Weight 76.9 kg - General Appearance General appearance: Present: well-developed, well-nourished, appears started age EENT: Present: mucous membranes moist Neck: Present: no JVD Respiratory: Present: clear Cardiology: Present: no edema, regular rate, regular rhythm Gastrointestinal: Present: normoactive bowel sounds, no tenderness Integumentary: Present: warm and dry Neurologic: Present: alert and oriented x3 - Lab 07/23/17 04:33 07/23/17 04:33 Most recent lab results Calcium 8.6 mg/dL (8.6-10.3) 07/23/17 04:33 Magnesium 1.2 mg/dL (1.6-2.6) L 07/21/17 20:21 Consult Discharge Plan - Plan Referrals: Vinnie Carrera [Other]
[2017-07-23] MEDS: Insulin DETEMIR 100 UNIT/ML X5UNITS SQ SCH ×2 (14:18→21:17)
[2017-07-23] MEDS: amLODIPine 5 MG TABLET PO SCH (14:19)
--- NOTE | 2017-07-23 17:36 | Internal Med Progress Note ---
Date of Encounter: 07/23/17 Time of Encounter: 11:30 - Assessment and plan (1) Hematuria Current Visit: Yes Status: Acute Assessment and plan: Urology consult appreciated, changed Mujica catheter to a larger bore catheter. Continue Flomax. Renal ultrasound shows no hydronephrosis. monitor hemoglobin closely. Held aspirin. Qualifiers: Hematuria type: gross Qualified Code(s): R31.0 - Gross hematuria (2) UTI (urinary tract infection) Current Visit: Yes Status: Ruled-out Assessment and plan: Urine culture no growth; will hold antibiotics; Qualifiers: Urinary tract infection type: acute cystitis Hematuria presence: with hematuria Qualified Code(s): N30.01 - Acute cystitis with hematuria (3) Essential hypertension Current Visit: Yes Status: Chronic Assessment and plan: Blood pressure noted to be elevated, restart home dose of Norvasc. (4) Hyperlipidemia Current Visit: Yes Status: Chronic Qualifiers: Hyperlipidemia type: unspecified Qualified Code(s): E78.5 - Hyperlipidemia , unspecified (5) Chronic kidney disease Current Visit: Yes Status: Chronic Assessment and plan: Review of previous records show possible chronic kidney disease with serum creatinine between 1.2 and 1.4. Nephrology on board. Creatinine currently stable, at baseline. Qualifiers: Chronic kidney disease stage: stage 3 (moderate) Qualified Code(s): N18.3 - Chronic kidney disease, stage 3 (moderate) (6) Acute kidney failure Current Visit: Yes Status: Resolved Qualifiers: Acute renal failure type: unspecified Qualified Code(s): N17.9 - Acute kidney failure, unspecified (7) Anemia Current Visit: Yes Status: Chronic Assessment and plan: Noted to have chronic anemia. Labs from 2015 show hemoglobin around 8, currently it 8.6. Iron profile consistent with anemia of chronic disease. Start ferrous sulfate supplements. Serum vitamin B12 and folate levels noted to be normal. Qualifiers: Anemia type: unspecified type Qualified Code(s): D64.9 - Anemia, unspecified (8) Type 2 diabetes mellitus Current Visit: Yes Status: Chronic Assessment and plan: Noted to have elevated blood sugars; start basal insulin per home regimen; Continue Accu-Chek blood glucose monitoring with sliding scale insulin as needed. Diabetic diet. 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 operator (current) use of insulin; Z79.4 - terminal press operator (current) use of insulin; Z79.4 - retirement (current) use of insulin; Z79.4 - terminal press operator (current) use of insulin - Subjective Interval history: Reports feeling better; improving hematuria; no fever, abdominal pain, nausea, vomiting; tolerates diet, c/o- constipation; - Constitutional Vitals: Temp Pulse Resp BP Pulse Ox 98.6 F 80 18 158/62 95 07/23/17 15:55 07/23/17 15:55 07/23/17 15:55 07/23/17 15:55 07/23/17 15:55 General appearance: Present: cooperative, A&O X 3, pleasant, answers questions appropriately - Respiratory Respiratory exam: Present: CTAB. Absent: accessory muscle use, rales, rhonchi, wheezes - Cardiovascular Cardiovascular exam: Present: RRR, +S1, +S2. Absent: diastolic murmur, gallop, rubs, systolic murmur - GI/Abdominal GI/Abdominal exam: Present: normal bowel sounds, soft, no peritoneal signs. Absent: distended, tenderness Internal Medicine: Result - Labs CBC & Chem 7: 07/24/17 07:58 07/24/17 07:58 Labs: Short CBC 07/23/17 Range/Units 04:33 WBC 9.6 (4.3-11.1) K/mcL Hgb 9.4 L (12.9-16.9) g/dL Hct 28.5 L (37.5-50.1) % Plt Count 242 (140-400) K/mcL Neutrophils # 6.3 (1.6-8.9) K/mcL BMP 07/23/17 04:33 Sodium 135 L Potassium 3.6 Chloride 106 Carbon Dioxide 21 L BUN 31 H Creatinine 1.41 H Glucose 276 H Calcium 8.6 Liver Function 07/23/17 Range/Units 04:33 Total Bilirubin 0.4 (0.3-1.0) mg/dL AST 13 (13-39) Units/L ALT 10 (7-52) Units/L Alkaline Phosphatase 71 (34-104) Units/L Albumin 3.3 L (3.5-5.7) g/dL - ABG Interpretation ABG results: PT/INR, D-dimer PT 11.8 Seconds (9.4-12.1) 07/21/17 20:21 Consult Discharge Plan - Plan Instructions: Anemia (GEN) Additional Instructions: F/up with PCP in 1-2 weeks Referrals: Vinnie Carrera [Other] (called and nobody answer) Dewayne Kan MD [Partnered Physician] - 08/06/17 7:45 am (Please follow up a schedule...) Prescriptions: Ferrous Sulfate 325 mg PO DAILY@0800 #30 tablet Sennosides/Docusate Sodium [Senna Plus] 1 each PO BID PRN #30 tablet PRN Reason: Constipation Tamsulosin [Flomax] 0.4 mg PO DAILY #30 capsule
--- NOTE | 2017-07-24 07:18 | Urology Progress Note ---
Date of Encounter: 07/24/17 Time of Encounter: 07:17 - Assessment and Plan (1) Bladder outlet obstruction Current Visit: Yes Status: Acute Assessment and plan: Continue Mujica catheter upon discharge. He can follow-up in the urology clinic in 1-2 weeks for a voiding trial. (2) Hematuria Current Visit: Yes Status: Acute Assessment and plan: His hematuria has resolved. Urology will sign off. Please call if questions. Qualifiers: Hematuria type: gross Qualified Code(s): R31.0 - Gross hematuria Progress Note Narrative: Doing well this morning. Urine is clear. Objective Initial Vital Signs Temp Pulse Resp BP Pulse Ox 98.1 F 71 16 147/56 96 07/21/17 18:18 07/21/17 18:18 07/21/17 18:18 07/21/17 18:18 07/21/17 18:18 - General physical appearance Present: well developed, no distress, no pain - Genitourinary Urine Appearance: Present: Clear - Labs 07/23/17 04:33 07/23/17 04:33 Consult Discharge Plan - Plan Referrals: Vinnie Carrera [Other]
[2017-07-24] MEDS: amLODIPine 5 MG TABLET PO SCH (08:09)
[2017-07-24] MEDS: cefTRIAXone 1,000 MG in Water for inj. (sterile) 20 ML 10 ML IVP SCH (08:09)
[2017-07-24] MEDS: Insulin DETEMIR 100 UNIT/ML X5UNITS SQ SCH (08:09)
[2017-07-24] MEDS: Insulin LISPRO 300 UNITS/3 ML VIAL SQ SCH ×2 (08:09→11:44)
[2017-07-24 08:10] LABS: Basophils # 0.1 K/mcL (0.0-0.2); Basophils % 0.5 %; Eosinophils # 0.1 K/mcL (0.0-0.6); Eosinophils % 1.2 %; Hematocrit 26.6 % (37.5-50.1); Hemoglobin 8.6 g/dL (12.9-16.9); Immature Granulocytes % 0.6 % (0-4); Lymphocytes % 18.3 %; Mean Corpuscular HGB Conc 32.3 g/dL (31.6-35.5); Mean Corpuscular Hemoglobin 30.8 pg (28.0-33.3); Mean Corpuscular Volume 95.3 fL (83.0-100.0); Mean Platelet Volume 10.6 fL (9.4-12.4); Monocytes # 1.5 K/mcL (0.0-1.3); Monocytes % 14.2 %; Platelet Count 241 K/mcL (140-400); Red Blood Count 2.79 M/mcL (4.19-5.50); Red Cell Distribution Width 12.4 % (11.5-14.5); Segmented Neutrophils % 65.2 %
[2017-07-24 08:27] LABS: Calcium 8.6 mg/dL (8.6-10.3); Potassium 4.1 mEq/L (3.5-5.1)
--- NOTE | 2017-07-24 09:28 | Nephrology Progress Note ---
Date of Encounter: 07/24/17 Time of Encounter: 09:00 - Assessment and Plan (1) Acute kidney failure Current Visit: Yes Status: Acute DANIEL most likely postobstructive diuresis and possible volume depletion superimposed on CKD most likely related to diabetes and hypertension, advanced age contributing. Baseline creat (in 2014) 1.3-1.7. Today creat 1.39. Accurate I &O. Avoid nephrotoxins. Will continue to monitor. Qualifiers: Acute renal failure type: unspecified Qualified Code(s): N17.9 - Acute kidney failure, unspecified Subjective Interval history: Laying in bed, States feeling somewhat better. Wants to go home. Objective - Vital Signs Vital signs: Vital Signs Temp Pulse Resp BP Pulse Ox 07/24/17 08:27 92 07/24/17 07:57 98.1 F 78 17 145/65 92 07/24/17 04:24 99.6 F 77 18 150/63 95 07/24/17 00:52 81 20 167/68 97 07/23/17 19:23 99.4 F 87 20 159/64 93 07/23/17 15:55 98.6 F 80 18 158/62 95 07/23/17 11:17 98.1 F 74 17 167/68 96 Intake and Output 07/23/17 07/24/17 07/24/17 23:59 07:59 15:59 Intake Total 380 / 380 400 / 400 360 / 360 Output Total 1250 / 1250 0 / 0 Balance 380 / 380 -850 / -850 360 / 360 Intake: Oral 380 / 380 400 / 400 360 / 360 Output: Urine 0 / 0 Catheter 1250 / 1250 Other: Meal Dinner Breakfast Percent of Meal Consumed 100% 100% Weight 80.5 kg Blood Glucose* 325 187 Patient Weight 07/24/17 23:59 Weight 80.5 kg - Lab 07/24/17 07:58 07/24/17 07:58 Most recent lab results Calcium 8.6 mg/dL (8.6-10.3) 07/24/17 07:58 Magnesium 1.2 mg/dL (1.6-2.6) L 07/21/17 20:21 Consult Discharge Plan - Plan Referrals: Vinnie Carrera [Other]
[2017-07-24] MEDS ORDERED: Sennosides/Docusate Sodium TABLET PO SCH (09:45)
[2017-07-24 11:31] VITALS: BP 149/64
--- NOTE | 2017-07-24 13:13 | Discharge Summary ---
- NOTES TO OUTPATIENT PROVIDER Notes to Outpatient Provider: Monitor blood sugars; being discharged on indwelling Mujica catheter; Orders not resulted at time of discharge: Pending orders 07/21/17 19:54 ECG 12 lead ECG [ECG] Routine Date of Encounter: 07/24/17 Time of Encounter: 13:11 - Discharge Diagnosis (1) Hematuria Priority: Primary Status: Acute Qualifiers: Hematuria type: gross Qualified Code(s): R31.0 - Gross hematuria (2) UTI (urinary tract infection) Priority: Primary Status: Suspected Qualifiers: Urinary tract infection type: acute cystitis Hematuria presence: with hematuria Qualified Code(s): N30.01 - Acute cystitis with hematuria (3) Essential hypertension Priority: Secondary Status: Chronic (4) Hyperlipidemia Priority: Secondary Status: Chronic Qualifiers: Hyperlipidemia type: unspecified Qualified Code(s): E78.5 - Hyperlipidemia , unspecified (5) Chronic kidney disease Priority: Secondary Status: Chronic Qualifiers: Chronic kidney disease stage: stage 3 (moderate) Qualified Code(s): N18.3 - Chronic kidney disease, stage 3 (moderate) (6) Acute kidney failure Priority: Primary Status: Resolved Qualifiers: Acute renal failure type: unspecified Qualified Code(s): N17.9 - Acute kidney failure, unspecified (7) Anemia Priority: Secondary Status: Chronic Qualifiers: Anemia type: unspecified type Qualified Code(s): D64.9 - Anemia, unspecified (8) Type 2 diabetes mellitus Priority: Secondary Status: Chronic Qualifiers: 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 Dumont is a 86 year old male with the above medical problems, who was admitted with hematuria. He was placed on Mujica catheter, aspirin was held. Retroperitoneal ultrasound showed no evidence of hydronephrosis. Urology was consulted, he changed his Mujica catheter to a larger bore catheter. His hemoglobin remained stable, hematuria improved at this time. He has been cleared by urology for discharge with Mujica catheter, with outpatient follow-up. Patient was noted to have chronic anemia. Serum iron profile is consistent with anemia of chronic disease, possibly due to chronic kidney disease. He is being started on oral ferrous sulfate supplements. There was concern for acute kidney injury, however on review of previous medical records, patient likely has chronic kidney disease due to age, underlying hypertension and diabetes. His blood sugars were noted to be elevated during this hospitalization and he was encouraged to be compliant with diabetic diet, insulin and to check his blood sugars frequently. However, patient refuses to use his glucometer at home. He is otherwise medically stable for discharge. Discharge discussed with: patient, family - Time Spent with Patient Total time spent providing and/or coordinating discharge services: Greater than 30 minutes (40 min) - Discharge Medications Prescriptions: Ferrous Sulfate 325 mg PO DAILY@0800 #30 tablet Sennosides/Docusate Sodium [Senna Plus] 1 each PO BID PRN #30 tablet PRN Reason: Constipation Tamsulosin [Flomax] 0.4 mg PO DAILY #30 capsule Home Medications: Acebutolol HCl 400 mg PO DAILY 07/22/17 [History] Atorvastatin [Lipitor] 10 mg PO HS 07/22/17 [History] Glimepiride [Amaryl] 4 mg PO DAILY 07/22/17 [History] amLODIPine [Norvasc] 5 mg PO DAILY 07/22/17 [History] Ferrous Sulfate 325 mg PO DAILY@0800 #30 tablet 07/24/17 [Rx] Insulin NPH Human Isophane [Humulin N Kwikpen] 20 unit SQ QPM #0 07/24/17 [Rx] Insulin NPH Human Isophane [Humulin N Kwikpen] 35 unit SQ QAM #0 07/24/17 [Rx] Sennosides/Docusate Sodium [Senna Plus] 1 each PO BID PRN #30 tablet 07/24/17 [ Rx] Tamsulosin [Flomax] 0.4 mg PO DAILY #30 capsule 07/24/17 [Rx] Allergies/Adverse Reactions: 3 Allergy/AdvReac Type Severity Reaction Status Date / Time codeine Allergy Hives Verified 07/21/17 18:42 morphine Allergy Rash Verified 07/21/17 18:42 Date of admission: 07/21/17 18:07 Primary care physician: Vinnie Carrera Consults: 07/21/17 20:00 Consult to Physician [CONS] Routine Consulting Provider: Dewayne Kan Reason for Consult: hematuria Time Notified: 20:00 Call Completed: Yes 07/21/17 20:02 Consult to Nephrology [CONS] Routine Consulting Provider: Clay Elder Reason for Consult: ARF; hematuria Time Notified: 20:03 Call Completed: Yes Discharging clinician: Ana Salazar Anticipated date of discharge: 07/24/17 - Constitutional Vitals: Temp Pulse Resp BP Pulse Ox 98.0 F 72 17 149/64 94 07/24/17 11:28 07/24/17 11:28 07/24/17 11:28 07/24/17 11:28 07/24/17 11:28 General appearance: Present: cooperative, A&O X 3, pleasant, no acute distress, answers questions appropriately - Patient Status Disposition: Home, Self-Care Condition: Good Functional capacity at discharge: independent ambulation Overall status at discharge: patient is progressing back to baseline - Discharge Instructions Follow Up With: Vinnie Carrera [Other] (called and nobody answer) Dewayne Kan MD [Partnered Physician] - 08/06/17 7:45 am (Please follow up a schedule...) Additional Instructions: F/up with PCP in 1-2 weeks - Diet and Activity Activity: resume usual activities as tolerated Diet: diabetic diet, low fat, low cholesterol, low salt diet, other (renal diet)
== END 2017-07-24 15:26 | disposition home or self-care (01) | DRG 699 ==
LOC: 2ANU 18:07
PROVIDERS: ADMIT Family Medicine; ATTEND Internal Medicine